=== PATIENT | female | born 1990 | race Caucasian/White ===

== ENCOUNTER 2019-02-06 00:53 | Outpatient (CLI) | payer OTHER ==
[~2019-02-06] VITALS: Ht 167.6 cm; Wt 85.0 kg
[2019-02-06 01:28] VITALS: BP 117/66
== END 2019-02-06 02:56 | disposition home or self-care (01) ==
LOC: LDOP 00:53
PROVIDERS: ATTEND Obstetrics & Gynecology
DX: O62.9 Abnormality of forces of labor, unspecified (principal); Z3A.39 39 weeks gestation of pregnancy
CPT/HCPCS: 59025; 99201; G0463